=== PATIENT | male | born 1990 | race Caucasian/White ===

== ENCOUNTER 2020-07-26 20:44 | Emergency (ER) | payer OTHER ==
[2020-07-26 20:50] VITALS: BP 138/78
--- NOTE | 2020-07-26 21:00 | ED Physician Documentation ---
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 Review of Systems Constitutional: reports: Reviewed and negative Eyes: reports: Reviewed and negative Ears: reports: Reviewed and negative Nose: reports: Reviewed and negative Throat: reports: Reviewed and negative Cardiac: reports: Reviewed and negative PD PAST MEDICAL HISTORY - Past Medical History Past Medical History: No - Past Surgical History Past Surgical History: No - Present Medications Home Medications: Ambulatory Orders Medication Instructions Recorded Confirmed No Known Home Medications 07/26/20 07/26/20 - Allergies Allergies/Adverse Reactions: Allergies Allergy/AdvReac Type Severity Reaction Status Date / Time No Known Drug Allergies Allergy Verified 07/26/20 20:50 - Social History Does the pt smoke?: No Smoking Status: Never smoker Does the pt drink ETOH?: No Does the pt have substance abuse?: No - Immunizations Immunizations are current?: Yes PD ED PE NORMAL - Vitals Vital signs reviewed: Yes - General General: Alert and oriented X 3, No acute distress - Extremities Extremities: Other (He has a fingertip amputation with just a little bit of nail involvement of the left second finger. It is less than 1 cm and actively bleeding.) - Neuro Neuro: Alert and oriented X 3, Normal speech Results - Vitals Vitals: Vital Signs - 24 hr 07/26/20 20:45 Temperature 36.9 C Heart Rate 91 Respiratory 14 Rate Blood Pressure 138/78 H O2 Saturation 98 Oxygen O2 Source Room air PD MEDICAL DECISION MAKING - ED course ED course: The wound was irrigated and [place] and tube gauze was used with a temporary pressure dressing only while in the department. He was counseled on wound care. Subsequently bled through, and the temporary pressure dressing was repeated and then removed without further bleeding. Departure - Departure Disposition: 01 Home, Self Care Clinical Impression: Fingertip amputation Qualifiers: Encounter type: initial encounter Qualified Code(s): S68.119A - Complete traumatic metacarpophalangeal amputation of unspecified finger, initial encounter Condition: Good Record reviewed to determine appropriate education?: Yes Instructions: ED Laceration Amputation Finger Tip Open Tx Comments: Keep the current dressing on until Tuesday morning. At that time you can take it off and briefly wash it with soap and water, then apply a nonstick dressing such as Telfa and light fabric tape to it with the metal finger splint over that. You can continue that process daily until it is healed in. Follow-up with your flight surgeon midweek for a wound check. Discharge Date/Time: 07/26/20 21:37
== END 2020-07-26 21:37 | disposition home or self-care (01) ==
LOC: ED 20:44
DX: S68.111A Complete traumatic metacarpophalangeal amputation of left index finger, initial encounter (principal); W26.0XXA Contact with knife, initial encounter; Y92.009 Unspecified place in unspecified non-institutional (private) residence as the place of occurrence of the external cause
CPT/HCPCS: 99281; 99282